=== PATIENT | female | born 1955 | race Caucasian/White ===

== ENCOUNTER 2017-12-15 19:21 | Emergency (ER) | payer BC ==
--- NOTE | 2017-12-15 19:42 | EDPHY ---
H & P Time Seen by Provider: 12/15/17 19:31 HPI/ROS: CHIEF COMPLAINT: Chest tightness and heart fluttering HISTORY OF PRESENT ILLNESS: Patient had symptoms of chest pain 10 years ago and ended up with angiogram which apparently was negative for any coronary disease that needed intervention. I do not have access to those records at this time. She over the past 4 days has felt intermittent tightness in her chest associated with fluttering of her heart. It is on off and over the past 3 days was worse in the morning and then she was able to ignore it over the course of the day. It is currently present, does not radiate, not associated with shortness of breath coughing fever or syncope. Not exertional. She got aspirin prior to arrival by EMS. REVIEW OF SYSTEMS: Eye: no change in vision ENT: no sore throat Cardiac: HPI Pulmonary: no cough or SOB Abdomen: no vomiting, diarrhea, abdominal pain Musculoskeletal: no back pain. Intermittent left neck and shoulder pain which is chronic for a while now. Skin: no rash Neuro: no headache Constitutional: no fever, but just"generally did not feel good today" : no urinary symptoms A comprehensive 10 point review of systems is otherwise negative aside from elements mentioned in the history of present illness. PAST MEDICAL HISTORY: Negative for diabetes hypertension, cholesterol unknown. Family history: Negative for VTE or premature coronary disease Social history: Nonsmoker, no drugs or cocaine. Daily alcohol. Recent 1000 mile car trip to [place] 2 weeks ago. General Appearance: Alert and conversant, cooperative. Eyes: No scleral icterus. ENT, Mouth: Normal mucous membranes. Respiratory: Normal respiratory effort, breath sounds equal, lungs are clear to auscultation. Cardiovascular: Regular rate and rhythm. Gastrointestinal: Abdomen is soft and non tender. Neurological: Alert, face symmetric, normal motor and sensory in extremities. Skin: Warm and dry, no rashes. Musculoskeletal: No peripheral edema. No calf tenderness. Psychiatric: Not agitated. Emergency Department course/MDM: Plan for sublingual nitroglycerin, chest x-ray, EKG, troponin and D-dimer. 2015: Low pretest clinical probability for pulmonary embolism, with D-dimer less than 0.5 think further investigation is not indicated at this time. 2051: discussed including heart score and shared decision making, with risk of heart attack or complication 1.5-2% if she leaves now. Discussed 2nd troponin or overnight observation, patient declined and I think she has capacity to make decisions regarding her care. Her family including her sons were involved in this decision in the room, and they are in agreement with the patient, who wants to leave now and follow up with her jet handler as an outpatient. Constitutional: Initial Vital Signs Temperature (C) 36.6 C 12/15/17 19:34 Heart Rate 83 12/15/17 19:34 Respiratory Rate 20 12/15/17 19:34 Blood Pressure 177/72 H 12/15/17 19:34 O2 Sat (%) 97 12/15/17 19:34 O2 Delivery Mode Room Air O2 (L/minute) 2 Allergies/Adverse Reactions: No Known Allergies Allergy (Unverified 12/15/17 19:32) Home Medications: Medication Instructions Recorded Advil Pm Caplet 12/15/17 NK [No Known Home Meds] 12/15/17 Medical Decision Making - Diagnostics EKG Interpretation: 12-lead EKG interpreted by me; official reading is in trace master. My interpretation is Sinus rhythm with ventricular bigeminy, nonspecific diffuse T- wave flattening. Rate 94. Imaging Results: Imaging Impressions Chest X-Ray 12/15/17 19:54 Impression: Borderline cardiomegaly. No failure or effusion. Imaging: I viewed and interpreted images myself Differential Diagnosis: Differential diagnosis considered for chest pain including but not limited to myocardial ischemia, aortic dissection, pericarditis, pulmonary embolus, chest wall pain, pleural inflammation and pulmonary infectious causes. - Data Points Laboratory Results: Laboratory Results 12/15/17 19:38 12/15/17 19:38 12/15/17 12/15/17 12/15/17 19:38 19:38 19:38 WBC 7.98 10^3/uL 10^3/uL (3.80-9.50) RBC 4.94 10^6/uL 10^6/uL (4.18-5.33) Hgb 16.4 g/dL H g/dL (12.6-16.3) Hct 47.3 % H % (38.0-47.0) MCV 95.7 fL fL (81.5-99.8) MCH 33.2 pg pg (27.9-34.1) MCHC 34.7 g/dL g/dL (32.4-36.7) RDW 12.2 % % (11.5-15.2) Plt Count 175 10^3/uL 10^3/uL (150-400) MPV 10.9 fL fL (8.7-11.7) Neut % (Auto) 51.0 % % (39.3-74.2) Lymph % (Auto) 35.6 % % (15.0-45.0) Hale % (Auto) 11.4 % % (4.5-13.0) Eos % (Auto) 1.4 % % (0.6-7.6) Baso % (Auto) 0.3 % % (0.3-1.7) Nucleat RBC Rel Count 0.0 % % (0.0-0.2) Absolute Neuts (auto) 4.08 10^3/uL 10^3/uL (1.70-6.50) Absolute Lymphs (auto) 2.84 10^3/uL 10^3/uL (1.00-3.00) Absolute Monos (auto) 0.91 10^3/uL H 10^3/uL (0.30-0.80) Absolute Eos (auto) 0.11 10^3/uL 10^3/uL (0.03-0.40) Absolute Basos (auto) 0.02 10^3/uL 10^3/uL (0.02-0.10) Absolute Nucleated RBC 0.00 10^3/uL 10^3/uL (0-0.01) Immature Gran % 0.3 % % (0.0-1.1) Immature Gran # 0.02 10^3/uL 10^3/uL (0.00-0.10) D-Dimer 0.38 ug/mLFEU ug/mLFEU (0.00-0.50) Sodium 145 mEq/L mEq/L (135-145) Potassium 4.1 mEq/L mEq/L (3.3-5.0) Chloride 110 mEq/L mEq/L (97-110) Carbon Dioxide 23 mEq/l mEq/l (22-31) Anion Gap 12 mEq/L mEq/L (8-16) BUN 21 mg/dL mg/dL (7-23) Creatinine 0.7 mg/dL mg/dL (0.6-1.0) Estimated GFR > 60 Glucose 78 mg/dL mg/dL (70-100) Calcium 9.1 mg/dL mg/dL (8.5-10.4) Troponin I < 0.012 ng/mL ng/mL (0.000-0.034) Departure - Departure Disposition: Home, Routine, Self-Care Clinical Impression: Palpitations Chest pain Qualifiers: Chest pain type: unspecified Qualified Code(s): R07.9 - Chest pain, unspecified Condition: Fair Instructions: Chest Pain (ED) Referrals: Nash Collazo MD [Medical Doctor] - 2-3 days, call for appt.
--- NOTE | 2017-12-15 19:44 | CPEKG ---
Heart Rate: 94 RR Interval: 638 P-R Interval: 160 QRSD Interval: 82 QT Interval: 320 QTC Interval: 401 P Shattuck: 55 QRS Shattuck: -1 T Wave Shattuck: 195 EKG Severity - ABNORMAL ECG - EKG Impression: SINUS RHYTHM EKG Impression: VENTRICULAR BIGEMINY EKG Impression: LEFT ATRIAL ABNORMALITY EKG Impression: NONSPECIFIC T ABNORMALITIES, DIFFUSE LEADS Electronically Signed By: Jeramie Noguear 15-Dec-2017 19:54:39
[2017-12-15] MEDS ORDERED: NITROGLYCERIN 0.4 MG BTL SL PRN (19:54)
[2017-12-15 20:00] LABS: PLATELET COUNT 175 10^3/uL (150-400)
[2017-12-15 21:00] VITALS: BP 106/92
== END 2017-12-15 21:08 | disposition home or self-care (01) ==
LOC: EDUNIT#
DX: R07.9 Chest pain, unspecified (principal); R00.2 Palpitations